=== PATIENT | female | born 1980 | race Caucasian/White ===

== ENCOUNTER → 2020-04-05 17:34 | Outpatient (CLI) | payer OTHER, SELFPAY ==
--- NOTE | ~2020-04-05 | XR_ITS ---
EXAMINATION: XR tibia fibula RT 2V DATE: 04/05/2020 18:02 INDICATION: Right lower leg lump. TECHNIQUE: 2 views of right tibia and fibula were obtained. COMPARISON: None. FINDINGS: Bone alignment is normal. No fracture. There is mild right knee joint osteoarthritis. A ski n marker is noted anterior to the mid shaft of the tibia. IMPRESSION: 1. Mild right knee osteoarthritis. Reviewed, dictated and finalized at location A. 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
== END ==
PROVIDERS: Visit Provider Family Medicine
DX: R22.40 Localized swelling, mass and lump, unspecified lower limb (principal); M17.11 Unilateral primary osteoarthritis, right knee
CPT/HCPCS: 73590

== ENCOUNTER 2022-08-13 09:39 | Outpatient (CLI) | payer OTHER, SELFPAY ==
--- NOTE | ~2022-08-13 | MM_ITS ---
EXAMINATION: MM screening jeanna BI w tiana HISTORY: Screening mammogram, family history of breast cancer in her mother. TECHNIQUE: Craniocaudal and mediolateral oblique 3-D tomosynthesis images were obtained and synthetic 2-D images were generated. CAD analysis was submitted and interpreted. COMPARISON: None, baseline BREAST PARENCHYMAL COMPOSITION: There are scattered areas of fibroglandular density. FINDINGS: RIGHT BREAST: An asymmetry is present in the posterior third of the outer breast on the craniocaudal view 10 cm from the nipple. LEFT BREAST: No suspicious mass, calcification, or architectural distortion are identified to suggest malignancy. IMPRESSION: 1. Right breast asymmetry. 2. Additional mammographic views and possible breast ultrasound are recommended to evaluate the right breast asymmetry and establish a baseline given that this is the first mammographic examination. BI-RADS Category 0: Incomplete: Needs additional imaging evaluation. Reviewed, dictated and finalized at location A. IMPRESSION: 1. Right breast asymmetry. 2. Additional mammographic views and possible breast ultrasound are recommended to evaluate the right breast asymmetry and establish a baseline given that thi s is the first mammographic examination. BI-RADS Category 0: Incomplete: Needs additional imaging evaluation.
== END 2022-08-13 09:40 | disposition home or self-care (01) ==
LOC: ANHIMG 09:42
PROVIDERS: PCP Clinical Nurse Specialist; Visit Provider Clinical Nurse Specialist
DX: Z12.31 Encounter for screening mammogram for malignant neoplasm of breast (principal); R92.8 Other abnormal and inconclusive findings on diagnostic imaging of breast
CPT/HCPCS: 77063; 77067

== ENCOUNTER 2022-09-11 12:03 | Outpatient (CLI) | payer OTHER, SELFPAY ==
--- NOTE | ~2022-09-11 | MMUS_ITS ---
EXAMINATION: MM diagnostic jeanna RT w tiana, US breast RT limited HISTORY: Right mammographic asymmetry in posterior third of outer breast on screening craniocaudal vi ew of 08/13/2022 TECHNIQUE: Additional 3-D tomosynthesis images of the right breast were performed and synthetic 2-D i mages were generated. CAD analysis was submitted and interpreted. High resolution upper outer and low er-outer quadrant right breast ultrasound was performed. COMPARISON: 08/14/2019 bilateral screening mammogram FINDINGS: MAMMOGRAPHIC FINDINGS: There is a focal approximately 3 x 5.7 mm opacity in the posterior outer mid right breast on CC proje ction, without obvious correlating mass noted on ML view.. ULTRASOUND: Some prominent ducts are noted at 6:00. No suspicious mass or shadowing or other significant sonograp hic abnormality is evident. IMPRESSION: 1. No mammographic or sonographic evidence of right breast malignancy 2. Routine annual mammographic screening is recommended BI-RADS Category 1: Negative Reviewed, dictated and finalized at location A. IMPRESSION: 1. No mammographic or sonographic evidence of right breast malignancy 2. Routine annual mammographic screening is recommended BI-RADS Category 1: Negative
== END 2022-09-11 12:04 | disposition home or self-care (01) ==
LOC: ANHIMG 12:04
PROVIDERS: PCP Clinical Nurse Specialist; Visit Provider Nurse Practitioner
DX: R92.8 Other abnormal and inconclusive findings on diagnostic imaging of breast (principal)
CPT/HCPCS: 76642; 77061; 77065; G0279

== ENCOUNTER 2023-06-01 11:28 | Outpatient (CLI) | payer OTHER, SELFPAY ==
--- NOTE | ~2023-06-01 | XR_ITS ---
XR_[id number]_CR 06/01/2023 11:46 Indication: Neck pain Procedure: 4 view cervical spine Comparison: No prior studies for comparison. Findings: There is disc narrowing and endplate hypertrophy at C6-7. There is straightening of cervica l lordosis. No fracture or traumatic malalignment. No prevertebral soft tissue swelling. Lung apices are unremarkable. Impression: 1: Mild cervical spondylosis. Reviewed, dictated and finalized at location B. Impression: 1: Mild cervical spondylosis.
== END 2023-06-01 11:29 ==
PROVIDERS: PCP Clinical Nurse Specialist; Visit Provider Clinical Nurse Specialist
DX: M43.02 Spondylolysis, cervical region (principal)
CPT/HCPCS: 72040

== ENCOUNTER 2023-06-08 13:25 | Outpatient (CLI) | payer OTHER, SELFPAY ==
--- NOTE | ~2023-06-08 | MR_ITS ---
EXAMINATION: MR cervical spine wo con DATE: 06/08/2023 14:06 INDICATION: Radiculopathy, cervical region. Neck pain. TECHNIQUE: Magnetic resonance imaging (MRI) of the cervical spine was performed without intravenous c ontrast. COMPARISON: Cervical spine radiographs 06/01/2023 FINDINGS: There is mild kyphosis of cervical spine. Vertebral body heights are normal. There is mildl y decreased disc height at C6-C7. The spinal cord signal intensity is normal. The following disc leve ls are specifically discussed: C2-C3: The disc does not extend beyond the endplate margin. There is no uncovertebral joint osteoarth ritis. There is mild bilateral facet joint osteoarthritis. There is no neural foraminal stenosis. The re is no central canal stenosis. C3-C4: The disc does not extend beyond the endplate margin. There is no uncovertebral joint osteoarth ritis. There is mild bilateral facet joint osteoarthritis. There is no neural foraminal stenosis. The re is no central canal stenosis. C4-C5: The disc does not extend beyond the endplate margin. There is no uncovertebral joint osteoarth ritis. There is no facet joint osteoarthritis. There is no neural foraminal stenosis. There is no heriberto tral canal stenosis. C5-C6: There is a central extrusion. There is mild bilateral uncovertebral joint osteoarthritis. Ther e is no facet joint osteoarthritis. There is no neural foraminal stenosis. There is mild central marcelo l stenosis. C6-C7: The disc is bulging. There is mild bilateral uncovertebral joint osteoarthritis. There is no f acet joint osteoarthritis. There is no neural foraminal stenosis. There is mild central canal stenosi s. C7-T1: The disc does not extend beyond the endplate margin. There is no uncovertebral joint osteoarth ritis. There is mild bilateral facet joint osteoarthritis. There is no neural foraminal stenosis. The re is no central canal stenosis. IMPRESSION: 1. Mild cervical spondylosis. Reviewed, dictated and finalized at location A.
== END 2023-06-08 13:26 ==
PROVIDERS: PCP Clinical Nurse Specialist; Visit Provider Clinical Nurse Specialist
DX: M43.02 Spondylolysis, cervical region (principal)
CPT/HCPCS: 72141

== ENCOUNTER → 2024-02-29 11:33 | Outpatient (REF) | payer OTHER, SELFPAY ==
--- OUTSIDE RECORDS SUMMARY | 2024-03-03 13:02 | XMS_ITS | Referral Summary ---
Author Organization [facility] Address [address] [place] [address] Care Team Providers Care Field Interviewer Name Role Phone Raine Viveros MD Primary Care Provider [phone] Source Comments [facility],non-owned Affiliates and Associated Physician Practices is amultiple site organization consisting of ambulatory clinics and hospital sitesin [place], [place], [place] and [place]. This disclosure is being madepursuant to the Care Everywhere program and may not contain all information available regarding this patient. Last updated 17.[facility] Allergies No known active allergies Medications * Be aware that medications may not be up to date on this document. Alwaysverify current medications with the patient. Medication Sig Dispensed Refills Start Date End Date Status Vit-Fe Fumarate-FA ( VITAMIN) 28-0.8 MG tablet Take 1 tablet by mouth once daily Active ferrous gluconate 324 (38 FE) MG tablet Take 324 mg by mouth once daily Active docusate sodium (COLACE) 100 MG capsule Take 100 mg by mouth once daily Active acetaminophen (TYLENOL) 500 MG tablet Take 1,000 mg by mouth every 4 hours as needed for Pain Maximum allowable Acetaminophen amount = 4 Grams (4000 mg) / 24 hours. 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 Antepartum multigravida of advanced maternal age 0304/20/2017 Social History Tobacco Use Types Packs/Day Years Used Date Smoking Tobacco: Former Cigarettes Q uit: 03/12/2017 Smokeless Tobacco: Never Tobacco Cessation:Counseling Given: Yes Alcohol Use Standard Drinks/Week Comments No 0 (1 standard drink = 0.6 oz pur e alcohol) Sex and Gender Information Value Date Recorded Sex Assigned at Not on file Gender Identity Not on file Sexual Orientation Not on file Last Filed Vital Signs Vital Sign Reading Time Taken Comments Blood Pressure 102/53 07/08/2017 9:17 AM CDT Pulse 84 07/08/2017 9:17 AM CDT Temperature - - Respiratory Rate - - Oxygen Saturation - - Inhaled Oxygen Concentration - - Weight 91.5 kg (201 lb 12.8 oz) 07/08/2017 9:17 AM CDT Height 165.1 cm (5' 5 ) 07/08/2017 9:18 AM CDT Body Mass Index 33.58 07/08/2017 9:17 AM CDT Plan of Treatment Not on file Care Teams Field Interviewer Relationship Specialty Start Date End Date Raine Viveros MD [address] [place] [id number] PCP - General Family Medicine 02/17/17
--- OUTSIDE RECORDS SUMMARY | 2024-03-03 13:02 | XMS_ITS | Clinical Summary ---
Author Organization [facility] Address [address] [place] [address]. [place], [place] [id number] [place] [address] Care Team Providers Care Plastic Mould Maker Name Role Phone Tomas Viveros MD Primary Care Provider [phone] Medications ALPRAZolam 0.25 MG tablet Take 0.25 mg by mouth nightly as needed for Sleep. Active sertraline 50 MG tablet Take 75 mg by mouth daily. Active tiZANidine 2 MG tablet Take 2 mg by mouth every 6 (six) hours as needed. Active Social History Tobacco Use Types Packs/Day Years Used Date Smoking Tobacco: Never Smokeless Tobacco: Never Alcohol Use Standard Drinks/Week Comments Not Currently 0 (1 standard drink = 0.6 oz pur e alcohol) Comments No Sex and Gender Information Value Date Recorded Sex Assigned at Not on file Legal Sex Female 4:20 PM CDT Gender Identity Not on file Sexual Orientation Not on file Last Filed Vital Signs Vital Sign Reading Time Taken Comments Blood Pressure 138/86 12/01/2020 10:25 PM CDT Pulse 74 12/01/2020 10:25 PM CDT Temperature 36.2 ??C (97.2 ??F) 12/01/2020 9:06 PM CD T Respiratory Rate 22 12/01/2020 9:06 PM CDT Oxygen Saturation 100% 12/01/2020 9:06 PM CDT Inhaled Oxygen Concentration - - Weight 79.4 kg (175 lb) 12/01/2020 9:06 PM CDT Height 165.1 cm (5' 5 ) 12/01/2020 9:06 PM CDT Body Mass Index 29.12 12/01/2020 9:06 PM CDT Plan of Treatment Health Maintenance Due Date Last Done Comments Cervical Cancer Screening Pa p Smear (Age 30 to 64) Every 3 Years 1980 Annual Physical 1983 Hepatitis C 1998 DTaP, Tdap and Td Vaccines ( 1 - Tdap) 1999 Hepatitis B Vaccines (1 of 3 - 19+ 3-dose series) 1999 Cervical Cancer Screening Pa p with HPV Testing (Age 30 to 64) Every 5 Years 2010 Cervical Cancer Screening with HPV 2010 Mammogram Screening 2020 COVID-19 Vaccine (2023-2 5 season) 2023 Influenza Adult (#1) 2023 HPV Vaccines Aged Out No longer eligi ble based on patient's age to complete this topic Meningococcal Vaccine Aged Out No marek huang eligible based on patient's age to complete this topic Pneumococcal Vaccine: Pediat rics (0 to 5 Years) and At-Risk Patients (6 to 64 Years) Aged Out No longer eligible b ased on patient's age to complete this topic RSV Immunizations Under 20 Months Aged Out No longer eligible based on patient's age to complete this topic Care Teams Plastic Mould Maker Relationship Specialty Start Date End Date Tomas Viveros MD [address] [place] [address] PCP - General 11/10/14
--- OUTSIDE RECORDS SUMMARY | 2024-03-03 13:02 | XMS_ITS | Encounter Summary ---
Author Organization [facility] Address [address] [place] [address]. [id number] [place] [address] Care Team Providers Care Package Winder Name Role Phone Tomas Viveros MD Primary Care Provider [phone] Encounter Details Date Type Department Care Team (Late st Contact Info) Description 12/13/2016 [place] [address] , Generic Conversion, Social History Tobacco Use Types Packs/Day Years Used Date Smoking Tobacco: Never Assessed Comments Unknown Sex and Gender Information Value Date Recorded Sex Assigned at Not on file Legal Sex Female 4:20 PM CDT Gender Identity Not on file Sexual Orientation Not on file documented as of this encounter Plan of Treatment Not on file documented as of this encounter Visit Diagnoses Not on filedocumented in this encounter Care Teams Package Winder Relationship Specialty Start Date End Date Tomas Viveros MD [address] [place] [place] [address] PCP - General 11/10/14 documented as of this encounter
--- OUTSIDE RECORDS SUMMARY | 2024-03-03 13:02 | XMS_ITS | Clinical Summary ---
Author Organization [facility] Address [address] [place] [address] Care Team Providers Care Granulizing Machine Operator Name Role Phone Raine Viveros MD Primary Care Provider [phone] [facility],non-owned Affiliates and Associated Physician Practices is amultiple site organization consisting of ambulatory clinics and hospital sitesin [place], [place], [place] and [place]. This disclosure is being madepursuant to the Care Everywhere program and may not contain all information available regarding this patient. Last updated 17.[facility] Allergies No known active allergies Medications * [...] Antepartum multigravida of advanced maternal age 0304/20/2017 Family History Medical History Relation Name Comments Diabetes - Type 2 Father Hypertension Father Cancer - Breast Maternal Aunt Cancer - Breast Maternal Grandmother Cancer - Breast Mother Thyroid Disease Mother Cancer - Breast Paternal Grandmother Relation Name Status Comments Father Maternal Aunt Maternal Grandmother Mother Paternal Grandmother Social History Tobacco Use Types Packs/Day Years [...] 07/08/2017 9:17 AM CDT Plan of Treatment Health Maintenance Due Date Last Done Comments LIPID TESTING 1980 MAMMOGRAM 1980 PAP SMEAR 1980 HIV SCREENING 1995 HEPATITIS C SCREENING 03/25/1998 DTAP/TDAP/TD VACCINES (1 - Tdap) 1999 HEPATITIS B VACCINE (1 of 3 - 19+ 3-dose series) 1999 COVID-19 VACCINE ( - 2023-2 5 season) 2023 INFLUENZA VACCINE (#1) 2023 DEPRESSION SCREENING 02/10/2024 ZOSTER VACCINE (1 of 2) 2030 HIB VACCINE Aged Out No longer eligi ble based on patient's age to complete this topic HPV VACCINE Aged Out No longer eligi ble based on patient's age to complete this topic MENINGOCOCCAL (Group B) VACCINE Aged Out No longer eligible based on patient's age to complete this topic MENINGOCOCCAL VACCINE Aged Out No marek huang eligible based on patient's age to complete this topic PNEUMOCOCCAL VACCINE Aged Out No long er eligible based on patient's age to complete this topic Care Teams Granulizing Machine Operator Relationship Specialty Start Date End Date Ranie Viveros MD [address] [place] [address] PCP - General Family Medicine 02/17/17
--- OUTSIDE RECORDS SUMMARY | 2024-03-03 13:02 | XMS_ITS | Patient Health Summary ---
Author Organization [facility] Address [address] [place] [address] Care Team Providers Care Power Transmission Engineer Name Role Phone Raine Viveros MD Primary Care Provider [phone] Note from [facility],non-owned Affiliates and Associated Physician Practices is amultiple site organization consisting of ambulatory clinics and hospital sitesin [place], [place], [place] and [place]. This disclosure is being madepursuant to the Care Everywhere program and may not contain all information available regarding this patient. Last updated 17.[facility] Allergies No known active allergies Medications * Be aware that medications may not be up to date on this document. Alwaysverify current medications with the patient. * Vit-Fe Fumarate-FA ( VITAMIN) 28-0.8 MG tablet Take 1 tablet by mouth once daily * ferrous gluconate 324 (38 FE) MG tablet Take 324 mg by mouth once daily * docusate sodium (COLACE) 100 MG capsule Take 100 mg by mouth once daily * acetaminophen (TYLENOL) 500 MG tablet Take 1,000 mg by mouth every 4 hours as needed for Pain Maximum allowable Acetaminophen amount = 4 Grams (4000 mg) / 24 hours. Active Problems Problem Noted Date Diagnosed Date [...] Mass Index 33.58 07/08/2017 9:17 AM CDT Procedures * SONOGRAM - COMPLETE(Performed 09/02/2017) Performed for Encounter for ultrasound to assess growth (HCC), Antepartum multigravida of advanced maternal age (HCC) * SONOGRAM - COMPLETE(Performed 08/05/2017) Performed for Encounter for ultrasound to assess growth (HCC), Antepartum multigravida of advanced maternal age (HCC) * SONOGRAM - COMPLETE(Performed 07/08/2017) Performed for Encounter for ultrasound to assess growth (HCC), Antepartum multigravida of advanced maternal age (HCC) * ECHO CONSULT - (Performed 06/11/2017) Performed for Suspected anomaly, antepartum, single or unspecified fetus (HCC), Antepartum multigravida of advanced maternal age (HCC) * SONOGRAM - COMPLETE(Performed 06/10/2017) Performed for Antepartum multigravida of advanced maternal age (HCC), Encounter for ultrasound to assess growth (HCC) * SONOGRAM - COMPLETE(Performed 05/13/2017) Performed for Antepartum multigravida of advanced maternal age (HCC) * SONOGRAM - COMPLETE(Performed 04/22/2017) Performed for Antepartum multigravida of advanced maternal age (HCC) Results * SONOGRAM - COMPLETE (09/02/2017 8:12 AM CDT) Only the most recent of6 resultswithin the time period is included. Anatomical Region Laterality Modality Other 09/02/2017 8:12 AM CDT Narrative 09/02/2017 10:25 PM CDT ? [facility] ? [facility] ?PHONE: ??FAX: Pat. Name: ?LORNA SAMUELS Pat. No: ?[id number] Study Date: ?? 09/02/2017 ??8:12am , Age: ? 1980, 37 Pregnancies: ?? 2, Para 1 Height: ? 65 in Weight: ? 161 lb LMP: ?12/04/2016 GA by LMP: ?38w6d GA by Base: ?? 38w3d ?? MARCELA: 09/13/2017 GA by US: ? 38w3d ?? MARCELA: 09/13/2017 GA Selected: ??38w3d (From [facility]) MARCELA: ?09/13/2017 Referring MD: Stella Campbell MD Hand Fur Cleaner: ??Gaye Orellana, AMISHA, RDCS CPT4: ? 22020 BMI: ?26.79 Hist/Ind: ? Growth ?2VC ?AMA ?NIPT- Low Risk per patient ? Echo --WNL ?Anti- M-neg on last titer MEASUREMENTS & AGE ? GROWTH EVALUATION Measurement ??GA ? Range ? Srce %for GA Ratios ----- ---- ------- BPD ??9.7 cm 39w6d (27j8g-87g4p) Hadl BPD 96% FL/BPD 0.70 (0.71 - 0.87* HC ??36.6 cm ? Hadl HC ?FL/AC ??0.19 (0.20 - 0.24* AC ??36.6 cm 40w4d (80y1k-11s5k) Hadl AC ??98% HC/AC ??1.00 (0.90 - 1.09) FL ?? 6.8 cm 35w0d (54t5j-92p3h) Hadl FL ??1% CI ? 0.74 (0.70 - 0.86) GA for sonogram 38w3d (69k2p-74e7h) ?? Weight Estimate: based on (BPD,AC,FL) Avg ? Weight: 3861 gm (3297-4425gm) Had ? : 8lbs, 8oz ? Normal: 3309 gm (2481- 4136gm) Had ? Wt% ? 90% for 38w3d Heart Rate: 136 bpm Amniotic Fluid Index: 16.7cm (07.3-23.4) Q1: 6.5cm ??Q2: 4.3cm ??Q4: 6.0cm ?? EVAL, PLACENTA Presentation: breech Umbilical Cord: 2 Vessels Placenta: anterior Heart Rate: 136 bpm Amniotic Fluid Volume: normal Anatomy!Normal!Abnormal!Suboptimal!Comments Cranium ?! ?? x ??! ?! ?! Stomach ?! ?? x ??! ?! ?! Kidneys ?! ?? x ??! ?! ?! Bladder ?! ?? x ??! ?! ?! 3 Vessel Cord! ?! ?x ?? ! ?!two vessel cord, seen ? previously CLINICAL SUMMARY Study Number: 6 This has been complicated by a 2 Vessel Cord; today's study was performed for re-evaluation of growth. ??A single fetus is identified in the breech presentation. ??The measurements today are consistent with Excessive growth for the estimated due date provided. ??The abdominal circumference is greater than the 97th percentile and the head biometry is are also greater than the 95th percentile. ??The femur length is less than the 5th percentile which is short. ??The MARCELA is based on prior ultrasound ( confirmed ). The amniotic fluid volume is normal. ??The placenta is anterior. IMPRESSION: Single, live, IUP 38w3d Asymmetric growth Enlarged head circumference Enlarged abdominal circumference Short femur normal amniotic fluid RECOMMEND: Follow up ultrasound as clinically indicated. Patient is scheduled for on Friday September 08, 2017 Thank you for the opportunity to participate in the care of your patient. Sharon Roberts MD <Electronic Signature> ??09/02/2017 10:24pm Stella Campbell MD [facility] ORDERABLES * ECHO CONSULT - (06/11/2017 11:21 AM CDT) 06/11/2017 11:2 1 AM CDT Narrative Procedure Note Radha Wood MD - 06/11/2017 [facility] [place] [id number] Fax Echocardiogram Report Pat.Name: LORNA SAMUELS.ID: [id number] St.Date: 06/11/2017 Exam Time: 11:21:00 AM Study Type: Echo Age: 2 1980,37Y Sex: FEMALE Sonogrphr: ALIN Briceno Pat. Stat.:Outpatient Reason for Study:2 vessel cord History / Clinical: indication extracardiac vascular abnormality 161 09/21/2017 Procedures: 2D Complete, Doppler Complete, Color Flow Visit ID: [id number] SUMMARY: Study Data: GA: 25/6 weeks. MARCELA: 09/18/2017 . : 2. Para: 1. Type: Mullen. Lie: Vertex. Impression: The echocardiogram was within normal limits; however small atrial and ventricular septal defects and persistent ductus arteriosus cannot be excluded as findings. Findings: Anatomic Relationships: Left sided cardiac apex (levocardia). There is normal visceral-cardiac situs, and normal segmental cardiac anatomical relationship. Systemic Veins: There is normal systemic venous return. Pulmonary Veins: The visualized pulmonary veins drain normally to the left atrium. Right Atrium: The right atrial size is normal. Left Atrium: The left atrial size is normal. Atrial Septum: Patent foramen ovale is seen with the foramen flap bowing from right to left and color flow is right to left. Tricuspid Valve: The tricuspid valve is structurally normal. The inflow pattern is normal. Tricuspid velocity is within the normal range. There is no regurgitation present. Mitral Valve: The mitral valve is structurally normal. The inflow pattern is normal. Mitral velocity is within the normal range. There is no regurgitation present. Right Ventricle: The cavity size is normal. The wall thickness is normal. The systolic function is normal. RV Outflow Tract: The outflow tract is normal. Left Ventricle: The cavity size is normal. The wall thickness is normal. The systolic function is normal. LV Outflow Tract: The outflow tract is normal. Ventricular Septum: There is no defect with no shunting. Pulmonary Valve: Leaflets exhibited normal mobility. The transpulmonic velocity is within the normal range. There is no regurgitation present. Aortic Valve: Leaflets exhibited normal mobility. The transaortic velocity is within the normal range. There is no regurgitation present. Pulmonary Artery: The MPA is normal with confluent branch pulmonary arteries. Aorta: aortic arch visualized and is without obstruction by 2D, color flow and Doppler. Ductus Arteriosus: The antegrade flow velocity and pattern in the ductal arch is normal. A normal ductus arteriosus is appreciated. Hydrops Assessment: No pericardial effusion. No evidence of ascites or pleural effusion. Rhythm: The rhythm is normal. There is 1:1 AV conduction. Dopplers: Flow in the ductus venosus is normal. The umbilical vein flow pattern is normal. The umbilical artery flow pattern is normal. MEASUREMENTS: DOPPLER Mitral Valve MV pkE 0.3 m/s MV E/A 0.6 no unit MV pkA 0.5 m/s Tricuspid Valve TV pkE 0.4 m/s TV E/A 0.6 no unit TV pkA 0.6 m/s Aortic Valve AVpkVel 0.9 m/s Pulmonic Valve PV pkVel 0.8 m/s HR HR 148 bpm Signed 06/11/2017 04:50 PM Radha Wood MD Sharon Roberts MD ECHO ORDERABLES [facility] [address] [place] [address] Care Teams Power Transmission Engineer Relationship Specialty Start Date End Date Raine Viveros MD [address] [place] [address] PCP - General Family Medicine 02/17/17
--- OUTSIDE RECORDS SUMMARY | 2024-03-03 13:02 | XMS_ITS | Continuity of Care Document ---
Author Organization [facility] Address [address] [place] [phone] Phone Care Team Providers Care Care Technician Name Role Phone Speak DO, Jesús Unavailable Unavailable Allergies, Adverse Reactions, Alerts Substance Reaction Status Criticality PROMETHAZINE HCL rash Active No Informat ion Procedures Procedure Date OFFICE/OUTPATIENT VISIT, [facility] C/V AUTO FLUID REDO Advance Directives Directive Yes / No Effective Date File Name No Information Encounters Encounter Description Practice Location Reason(s) For Visit Diagnoses Date Provider Providers Copied on Encounter [facility], [address] [place] [address], [id number], tel:[phone] [facility] No Information 4 Speak Jesús. [address] [place], [id number] . [phone] OFFICE/OUTPA TIENT VISIT, [facility], [address] [place] [address], [id number], [place] tel:[phone] [facility] New DIRECTOR OF CONSTRUCTION (chief complaint) HX OF CERVICAL DYSPLASIAIrregular menstrual cycle 3 Speak Jesús. [address] [place], [id number] . tel: [phone] Family History Family Member Type Diagnosis Age At Onset Mother Problem (finding) hypertension Maternal grandfather Problem (finding) stroke Paternal grandmother Problem (finding) malignant neoplasm of breast in first degree relative Mother Problem (finding) malignant neop lasm of breast in first degree relative Mother Problem (finding) malignant neoplasm of o vary Mother Problem (finding) Thyroid disease Maternal grandmother Problem (finding) malignant neoplasm of breast in first degree relative Payers Payer name Insurance type Covered republican ID Edwardo maradiaga(s) [place] [employer] [place] [id number] Social History Type Description Quantity Date Captured Comments Alcohol Use Details Unknown Caffeine Use Details Unknown Tobacco Use Status Smoking Status No Information Smoking Tobacco Use Details Cigarette: No Details Available Cigarette: 0 Packs per day Sex Female Chief Complaint And Reason For Visit No Information Reason For Referral Reason For Referral No Information Plan Of Treatment Date Type Action Status Goal Tobacco cessation counseling completed History Of Present Illness Encounter Date Complaint History Of Prese nt Illness No Information Functional Status Date Functional Assessmen t No Information Instructions Date Instruction Additional Infor mation No Information Assessments Type Assessment Date No Information Patient Care Teams Name Effective Dates (start - stop) Status Members No Information
== END ==
LOC: ANHLAB 11:33
PROVIDERS: Visit Provider Plastic Surgery
DX: D23.5 Other benign neoplasm of skin of trunk (principal)
CPT/HCPCS: 88305